=== PATIENT | male | born 1940 | race Caucasian/White ===

== ENCOUNTER 2018-03-05 12:57 | Outpatient (RCR) | payer MEDICARE, OTHER ==
[~2018-03-05 12:57] MED LIST: ASPI-84 PO; CEPH500C PO; DICL75TA2 PO; HCT25T; HYDR1CAP2; HYDR1TAB8 OP; KRIL500C PO; LRZ1T PO; METO25TA2 PO; MULT-608 PO; OMG1KC; OXYC-12 PO; PRV20T PO; TRAM-21; VICODIN 5/325 PO
== END 2018-05-27 | disposition home or self-care (01) ==
LOC: CR 12:57
PROVIDERS: ATTEND Thoracic Surgery (Cardiothoracic Vascular Surgery)
DX: Z48.812 Encounter for surgical aftercare following surgery on the circulatory system (principal); I25.2 Old myocardial infarction; Z95.1 Presence of aortocoronary bypass graft
CPT/HCPCS: 93798

== ENCOUNTER → 2021-09-29 | Outpatient (CLI) | payer OTHER ==
--- NOTE | 2021-09-29 11:52 | Diagnostic Imaging Report ---
INDICATION: Back pain. TIME OF EXAM: 10:10 AM. FINDINGS: The curvature and alignment of the lumbar spine are normal. The vertebral body heights are maintained. No acute compression fracture is seen. There appears to be osseous fusion between T12 and L1 and L1 and L2. Severe degenerative disc disease from L2-3 through the L5-S1 levels is noted with complete loss of the disc space as well as prominent osteophyte formation. There is multilevel facet arthropathy. The aorta is calcified. IMPRESSION: Severe lumbar spondylosis as well as post surgical changes. No acute bony abnormality is detected. Dictated by: Dictated on workstation # [id number]
--- NOTE | 2021-09-29 11:55 | Diagnostic Imaging Report ---
INDICATION: Hip pain. TIME OF EXAM: 10:04 AM. TECHNIQUE: An AP view of the pelvis as well as two views of each hip were obtained. 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 There is complete loss of the superior joint space. There is sclerosis and subchondral cyst formation involving the femoral head as well as the acetabular roof. Moderate degenerative changes of the left hip are also noted but to a lesser degree. No fractures are identified. The rami are intact. There are radiation seed implants within the prostate gland. IMPRESSION: Severe degenerative changes of the right hip with moderate degenerative changes of the left hip. No acute bony abnormality is detected. Dictated by: Dictated on workstation # [id number]
== END ==
LOC: RAD FS 09:39
PROVIDERS: ATTEND Nurse Practitioner
DX: M47.816 Spondylosis without myelopathy or radiculopathy, lumbar region (principal); M16.0 Bilateral primary osteoarthritis of hip
CPT/HCPCS: 72100; 73521

== ENCOUNTER → 2021-10-18 | Outpatient (CLI) | payer OTHER ==
--- NOTE | 2021-10-18 16:04 | Diagnostic Imaging Report ---
PROCEDURE: MRI lumbar spine. TECHNIQUE: Multiplanar, multisequence MRI of the lumbar spine was performed without contrast. INDICATION: Worsened back pain, right leg weakness, painful limitations in range of motion; previous lumbar surgery is remote. Comparison limited to radiographs of 09/26/2021. FINDINGS: There is solid interbody fusion at T12 through L2 present. Alignment is within normal limits. No acute marrow signal pathology. There are some mild Modic type I and type II mixed fatty and edematous changes across the L3-L4 endplates as well as fatty type II changes at the L5-S1 endplates. The lower thoracic cord and conus appeared normal. There is no paravertebral mass, hemorrhage, or fluid collection. No acute epidural pathology. There appears to be ankylosis of the partially visualized upper SI joints. T12-L1: Endplate osteophytes and spurs flatten the ventral thecal sac. There is mild canal stenosis and moderate bony biforaminal narrowing. L1-L2: Endplate osteophytes and bony hypertrophy efface and indent the ventral thecal sac. There is severe canal stenosis with [id number]-qs-kdaizo bony biforaminal narrowing. L2-L3: There is ligamenta flava thickening and facet arthrosis. There is disc desiccation, bulge, and endplate osteophytes. The findings result in mild right and moderate left foraminal narrowing with mild canal stenosis. L3-L4: There is disc desiccation, stature loss, bulge, endplate osteophytes thickened ligamenta flava, and facet arthrosis. The constellation of findings severely stenoses the thecal sac at this disc space level and results in [id number]-[id number]-nfepdl biforaminal narrowing. L4-L5: There is disc desiccation, stature loss, and bulge with endplate spurs resulting in no substantial canal stenosis; however, there is moderate right and moderate left neural foraminal narrowing. L5-S1: Spinal canal is widely patent; however, osteophyte disc material results in [id number] right and moderate left foraminal narrowing. 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 Dictated by: Dictated on workstation # [id number]
== END ==
LOC: RAD 14:45
PROVIDERS: ATTEND Nurse Practitioner
DX: Z01.89 Encounter for other specified special examinations (principal); M48.061 Spinal stenosis, lumbar region without neurogenic claudication
CPT/HCPCS: 72148

== ENCOUNTER 2021-12-30 19:48 | Emergency (ER) | payer OTHER ==
[~2021-12-30] VITALS: Ht 177.8 cm; Wt 81.6 kg
[2021-12-30 19:53] VITALS: BP 178/71
--- NOTE | 2021-12-30 19:54 | ED Fall/Injury ---
General Stated Complaint: WC,FALL,FACE LAC History of Present Illness Date Seen by Provider: Dec 30, 2021 Time Seen by Provider: 19:54 Initial Comments 81-year-old male presents with fall and a laceration above his left eyebrow. Patient reports he was walking a gas can down the boat when he slipped and fell. Suffered a small laceration. He did not lose consciousness. He has a small abrasion to his left anterior chest wall, left cheek left forehead. Patient has no nausea vomiting or other systemic complaints. injury happened 30 min prior to arrival Allergies and Home Medications Allergies Coded Allergies: No Known Drug Allergies (Verified , 09/14/09) Uncoded Allergies: ONE MED FOR DEPRESSION UNKNOWN NAME (Allergy, Mild, 08/21/09) Patient Home Medication List Home Medication List Reviewed: Yes Aspirin (Esther) 81 Mg Tablet.dr, 81 MG PO DAILY, (Reported) Entered as Reported by: MASON SWAIN on 08/21/09 0821 Cephalexin Monohydrate (Cephalexin) 500 Mg Capsule, 1 EACH PO QID, (Reported) Entered as Reported by: GURPREET NORRIS on 07/25/11 1225 Diclofenac Sodium (Diclofenac Sodium) 75 Mg Tablet.dr, 75 MG PO DAILY, (Reported) Entered as Reported by: MASON SWAIN on 08/21/09 0822 Krill Oil (Krill Oil) 500 Mg Capsule, 500 MG PO DAILY, (Reported) Entered as Reported by: GURPREET NORRIS on 07/25/11 1218 Metoprolol Tartrate (Metoprolol Tartrate 25 Mg) 25 Mg Tablet, 1 TAB PO DAILY, (Reported) Entered as Reported by: GURPREET NORRIS on 07/25/11 1216 Multivitamins (Multiple Vitamin) 1 Tab Tablet, 1 TAB PO DAILY, (Reported) Entered as Reported by: KONRAD HERRERA on 02/11/10 0802 Pravastatin Sod (Pravachol (Non-Formulary)) 20 Mg Tab, 5 MG PO HS, (Reported) Entered as Reported by: GURPREET NORRIS on 07/25/11 1216 [Vicodin 5/325] , PO Q4H PRN, (Reported) Entered as Reported by: DARCIE COPPOLA on 07/27/11 0958 Review of Systems Review of Systems Constitutional: No chills, No fever Ears, Nose, Mouth, Throat: no symptoms reported Respiratory: no symptoms reported Cardiovascular: no symptoms reported Gastrointestinal: no symptoms reported Genitourinary: no symptoms reported Musculoskeletal: no symptoms reported Skin: see HPI Psychiatric/Neurological: No Symptoms Reported Past Latzwcs-Sisoja-Zxtewm Hx Past Medical History Reproductive Disorders: No Physical Exam Vital Signs Vital Signs - First Documented 12/30/21 19:53 Temp 36.7 Pulse 57 Resp 18 B/P (MAP) 178/71 (106) Pulse Ox 94 O2 Delivery Room Air Capillary Refill : Height, Weight, BMI Height: '" Weight: lbs. oz. kg; BMI Method:Stated General Appearance: WD/WN, no apparent distress HEENT: other (Laceration to left eyebrow with some mild swelling) Neck: non-tender, full range of motion Cardiovascular: normal peripheral pulses, regular rate, rhythm Respiratory: lungs clear, normal breath sounds Gastrointestinal: non tender, soft Extremities: non-tender, normal inspection Neurologic/Psychiatric: alert, normal mood/affect, oriented x 3 Skin: other (3 cm laceration left eyebrow) Procedures/Interventions Wound Location: Eye (Left eyebrow) Wound Length (cm): 3 Wound's Depth, Shape: superficial Wound Explored: clean Anesthesia: 1% Lidocaine Wound Debrided: minimal Suture: Vicryl Suture Size: 5-0 Number of Sutures: 4 Progress Patient tolerated well with no immediate complications Progress/Results/Core Measures Results/Orders Vital Signs/I&O 12/30/21 19:53 Temp 36.7 Pulse 57 Resp 18 B/P (MAP) 178/71 (106) Pulse Ox 94 O2 Delivery Room Air Progress Progress Note : Progress Note Patient with laceration and abrasions to face. We discussed CT scan of head and face for further evaluation but at this time he declined. Patient will return to the ER if he feels he has any worrisome symptoms. Family is with him and said that they walk also be with him throughout the night and make sure that he does not have any concerning symptoms or changes. Patient was stable and discharged Departure Impression Primary Impression: Laceration of left eyebrow without complication Qualified Codes: S01.112A - Laceration without foreign body of left eyelid and periocular area, initial encounter Additional Impressions: Fall from standing Qualified Codes: W19.XXXA - Unspecified fall, initial encounter Abrasion of face Qualified Codes: S00.81XA - Abrasion of other part of head, initial encounter Disposition: HOME, SELF-CARE Condition: Stable Departure-Patient Inst. Referrals: CASEY BARRAGAN (PCP/Family) Primary Care Physician Patient Instructions: Laceration Repair With Stitches ED Add. Discharge Instructions: Keep clean with warm soapy water Return to the ER or follow-up with your primary care provider in 7 days for suture removal SAMMY HARTMAN DO Dec 30, 2021 19:54
== END 2021-12-30 20:24 | disposition home or self-care (01) ==
LOC: EDUNIT# 19:48 → ER FS 19:49
DX: S01.112A Laceration without foreign body of left eyelid and periocular area, initial encounter (principal); Z28.311 Partially vaccinated for COVID-19; W01.0XXA Fall on same level from slipping, tripping and stumbling without subsequent striking against object, initial encounter; Y93.01 Activity, walking, marching and hiking
CPT/HCPCS: 12011